=== PATIENT | female | born 1955 | race African-American/Black ===

== ENCOUNTER 2019-03-02 13:45 | Emergency (ER) | payer OTHER, MEDICAID ==
[~2019-03-02] VITALS: Ht 170.2 cm; Wt 79.8 kg
[2019-03-02 13:59] VITALS: BP 118/71
[2019-03-02] MEDS ORDERED: TRAZ-343 PO (14:08)
[2019-03-02] MEDS ORDERED: AMLO5TAB PO (14:08)
[2019-03-02] MEDS ORDERED: PALI6TER PO (14:08)
[2019-03-02] MEDS ORDERED: PANT40EC PO (14:08)
[2019-03-02] MEDS ORDERED: BENZ-248 PO (14:08)
[2019-03-02] MEDS ORDERED: GABA300C PO (14:08)
[2019-03-02] MEDS ORDERED: DIT5 PO (14:08)
[2019-03-02] MEDS ORDERED: IBUPROFEN 600 MG TAB PO ONE (14:45)
[2019-03-02] MEDS ORDERED: HYDROcodone/APAP 5/325 MG 1 TAB TAB PO ONE (15:10)
[2019-03-02 16:57] VITALS: BP 127/76
== END 2019-03-02 16:57 | disposition home or self-care (01) ==
LOC: MED 13:45
DX: G89.29 Other chronic pain (principal); M43.16 Spondylolisthesis, lumbar region; M25.562 Pain in left knee; Z90.49 Acquired absence of other specified parts of digestive tract; Z85.3 Personal history of malignant neoplasm of breast; Z79.899 Other long term (current) drug therapy
CPT/HCPCS: 72100; 73562; 81002; 99283

== ENCOUNTER 2020-10-25 20:42 | Emergency (ER) | payer MEDICARE, MEDICAID ==
[~2020-10-25] VITALS: Ht 167.6 cm; Wt 83.9 kg
[2020-10-25 20:42] VITALS: BP 114/58
[~2020-10-25 20:42] MED LIST: AMLO5TAB PO; BENZ-203 PO; DIT5 PO; GABA300C PO; PALI6TER PO; PANT40EC PO; TRAZ-343 PO
--- NOTE | 2020-10-25 20:49 | NUR ---
PT LILLIAN BLS. TAKEN TO BED 8
--- NOTE | 2020-10-25 20:50 | NUR ---
64 Y/O FEMALE BIBA FROM [facility] C/O LEFT BACK PAIN, LEFT ABDOMINAL AND UPPER LEFT LEG PAIN OF 10/10 S/P FALL.PER EMS, PT WAS FOUND LYING ON THE FLOOR, (UNWITNESSED FALL) AND LANDED ON HER LEFT ABDOMINAL AREA. DENIES N/V/D; SKIN IS PINK/WARM/DRY; AAOX4 WITH UNSTEADY GAIT (NEEDS ASSISTANCE WHEN WALKING); LUNGS CLEAR BL; HR EVEN AND REGULAR; PT DENIES ANY FEVER, CP, SOB, OR COUGH AT THIS TIME; VSS; PATIENT POSITIONED FOR COMFORT; HOB ELEVATED; BEDRAILS UP X2; BED DOWN. ER MD MADE AWARE OF PT STATUS. PMH: SCHIZO, HTN, ASTHMA, BIPOLAR, GERD, DVT, ABDOMINAL HERNIA
--- NOTE | 2020-10-25 20:58 | NUR ---
Dr. Krueger examining patient.
--- NOTE | 2020-10-25 21:20 | NUR ---
PT TAKEN TO CT
--- NOTE | 2020-10-25 21:39 | NUR ---
PATIENT RETURNED FROM CT VIA [facility].
[2020-10-25] MEDS ORDERED: HYDROcodone/APAP 5/325 MG 1 TAB TAB PO ONE (22:20)
[2020-10-25] MEDS ORDERED: MIRABULK PO (22:24)
--- NOTE | 2020-10-25 22:49 | NUR ---
CALLED [facility], SPOKE TO NICOLAS (STAFF) REGARDING TRANSPORT FOR PATIENT
[2020-10-25 23:25] VITALS: BP 114/58
--- NOTE | 2020-10-25 23:26 | NUR ---
Patient discharged with v/s stable. Written and verbal after care instructions given and explained. Patient verbalized understanding. PICKED UP BY [facility] by caregiver. All questions addressed prior to discharge. Advised to follow up with PMD.
== END 2020-10-25 23:26 | disposition home or self-care (01) ==
LOC: MED 20:42
DX: M54.5 Low back pain (principal); R51.9 Headache, unspecified; K59.00 Constipation, unspecified; J45.909 Unspecified asthma, uncomplicated; E11.9 Type 2 diabetes mellitus without complications; I10 Essential (primary) hypertension; F31.9 Bipolar disorder, unspecified; F20.9 Schizophrenia, unspecified; W19.XXXA Unspecified fall, initial encounter; Y93.89 Activity, other specified; Y92.89 Other specified places as the place of occurrence of the external cause; Y99.8 Other external cause status
CPT/HCPCS: 70450; 99285

== ENCOUNTER 2021-01-11 18:00 | Emergency (ER) | payer MEDICARE, MEDICAID ==
[~2021-01-11] VITALS: Ht 160 cm; Wt 72.6 kg
[~2021-01-11 18:00] MED LIST changes: +MIRABULK PO
[2021-01-11 18:03] VITALS: BP 100/70
--- NOTE | 2021-01-11 18:22 | NUR ---
65/F quyen from [facility] with c/o left big toe pain. Patient states a chair fell on her left foot today. Reports 9/10 sharp constant pain that worsens when she attempts to walk or put on shoes. Denies taking anything for pain prior to arrival, no bruising or swelling noted to site, patient able to move all toes appropriately, pulses and sensation equal bilaterally.
--- NOTE | 2021-01-11 19:12 | NUR ---
Pt report given to Stella. Transfer of care at this time.
--- NOTE | 2021-01-11 19:12 | NUR ---
Received report from NATI Cruz for continuity of care
--- NOTE | 2021-01-11 19:13 | NUR ---
ERMD AT BEDSIDE FOR MEDICAL EVALUATION.
[2021-01-11] MEDS ORDERED: IBUPROFEN 600 MG TAB PO ONE (19:15)
[2021-01-11] MEDS ORDERED: ACETAMINOPHEN 325 MG TAB PO ONE (19:15)
--- NOTE | 2021-01-11 19:19 | NUR ---
radiology at bedside.
[2021-01-11] MEDS ORDERED: ACET-2619 PO (19:48)
--- NOTE | 2021-01-11 20:22 | NUR ---
CALLED [facility] FOR TRANSPORTATION, MACHINE OPERATOR HELPER ETA 45MIN-1HR.
[2021-01-11 20:34] VITALS: BP 113/75
== END 2021-01-11 20:34 | disposition home or self-care (01) ==
LOC: MED 18:00
DX: S90.122A Contusion of left lesser toe(s) without damage to nail, initial encounter (principal); J45.909 Unspecified asthma, uncomplicated; I10 Essential (primary) hypertension; F20.9 Schizophrenia, unspecified; W07.XXXA Fall from chair, initial encounter; Y93.89 Activity, other specified; Y92.89 Other specified places as the place of occurrence of the external cause; Y99.8 Other external cause status
CPT/HCPCS: 73620; 99283

== ENCOUNTER 2021-01-26 18:42 | Emergency (ER) | payer MEDICARE, MEDICAID ==
[~2021-01-26] VITALS: Ht 170.2 cm; Wt 68.0 kg
[~2021-01-26 18:42] MED LIST changes: +ACET-2619 PO
[2021-01-26 18:49] VITALS: BP 120/88
--- NOTE | 2021-01-26 18:49 | NUR ---
PT BIBA TO BED 03
--- NOTE | 2021-01-26 19:00 | NUR ---
LILLIAN from [facility] with c/c ALOC. Per EMS, patient normally A&Ox4 GCS 14, but was found slumped over and drooling on self. Upon arrival, EMS states patient acting appropriately A&Ox4, GCS 4-4-6. BS by EMS 98. VSS; RR even/unlabored. Patient presents A&Ox4 to person/year/place/situation. Pt reports not being able to sleep for 3 days. Pt placed into a gown. PMH: Schizo, GED, HTN Meds: trazodone, benztropine, amlodipine, gabapentin, pantoprazole, oxybutynin, chantix, [place] NKA Sx: Denies
[2021-01-26] MEDS ORDERED: ACETAMINOPHEN EXTRA STRENGTH 500 MG TAB PO ONE (19:05)
--- NOTE | 2021-01-26 19:32 | NUR ---
LAB AT BEDSIDE
[2021-01-26 19:42] LABS: BASOPHILS % (AUTO) 0.5 % (0.0-2.0); EOSINOPHILS # (AUTO) 0.1 K/uL (0-0.4); EOSINOPHILS % (AUTO) 2.8 % (0.0-4.0); HEMATOCRIT 39.7 % (36-48); HEMOGLOBIN 13.6 g/dL (12.0-16.0); LYMPHOCYTES # (AUTO) 1.7 K/uL (2.5-16.5); LYMPHOCYTES % (AUTO) 40.8 % (20.5-51.1); MEAN CORPUSCULAR HEMOGLOBIN 34 pg (27-31); MEAN CORPUSCULAR HGB CONC 34 g/dL (33-37); MEAN CORPUSCULAR VOLUME 98.4 fL (80-94); MONOCYTES # (AUTO) 0.4 K/uL (0.8-1.0); MONOCYTES % (AUTO) 10.6 % (1.7-9.3); NEUTROPHILS # (AUTO) 1.9 K/uL (1.8-7.7); NEUTROPHILS % (AUTO) 45.3 % (42.2-75.2); PLATELET COUNT (AUTO) 253 K/uL (140-450); RED BLOOD CELL COUNT(AUTO) 4.04 MIL/uL (4.20-5.40); RED CELL DISTRIBUTION WIDTH 13.5 % (11.6-13.7); WHITE BLOOD COUNT (AUTO) 4.2 K/uL (4.8-10.8)
--- NOTE | 2021-01-26 20:06 | NUR ---
# 16 FR Urinary catheter inserted utilizing sterile technique. Immediate return of 30 ml SUMMER urine noted. Urine sample collected and sent to lab. Pt tolerated procedure WELL.
--- NOTE | 2021-01-26 20:10 | NUR ---
PT TAKEN TO CT SCAN VIA [facility]
[2021-01-26 20:12] LABS: ALBUMIN 3.6 g/dL (3.4-5.0); ANION GAP 13.7 (8-16); ASPARTATE AMINOTRANSFERASE 99 U/L (15-37); CARBON DIOXIDE 25.6 mmol/L (21-32); CHLORIDE 108 mmol/L (98-107); CREATININE 1.1 mg/dL (0.6-1.3); GFR ARICAN-AMERICAN 64 mL/min (>90); GLUCOSE 91 mg/dL (74-106); POTASSIUM 3.3 mmol/L (3.5-5.1); SALICYLATE < 2.8 mg/dL (2.8-20.0); SODIUM SERUM 144 mmol/L (136-145); TOTAL BILIRUBIN 0.7 mg/dL (0.0-1.0); UREA NITROGEN, BLOOD 20 mg/dL (7-18)
[2021-01-26 20:13] LABS: ACETAMINOPHEN < 0.5 ug/ml (10-30)
--- NOTE | 2021-01-26 20:15 | NUR ---
PT RETURNED FROM CT
[2021-01-26 20:17] LABS: APPEARANCE,URINE HAZY (CLEAR); BILIRUBIN,URINE 1+ (NEGATIVE); BLOOD, URINE NEGATIVE (NEGATIVE); COLOR,URINE YELLOW (YELLOW); LEUKOCYTE ESTERASE ,URINE NEGATIVE (NEGATIVE); NITRITE, URINE NEGATIVE (NEGATIVE); PH,URINE 6.5 (5.0-9.0); UGLUCOSE NEGATIVE (NEGATIVE)
[2021-01-26 20:31] LABS: BARBITURATE, URINE NEGATIVE ng/ml (NEG <=200); BENZODIAZEPINE, URINE NEGATIVE ng/mL (NEG <=200); CANNABINOID, URINE NEGATIVE ng/mL (NEG <=50); COCAINE, URINE NEGATIVE ng/mL (NEG <=300); OPIATE, URINE NEGATIVE ng/mL (NEG <=2000); PHENCYCLIDINE SCREEN,URINE NEGATIVE ng/mL (NEG <=25)
[2021-01-26] MEDS ORDERED: POTASSIUM CHLORIDE 10 MEQ TABER PO ONE (20:55)
--- NOTE | 2021-01-26 22:00 | NUR ---
CALLED FACILITY PER DIRECTOR APPOINTMENT PT CAN TAKE A CAB BACK, WHEN READY TO BE DISCHARGED. Addendum: 01/26/21 at 2202 by [email or web address] [phone]
--- NOTE | 2021-01-26 22:48 | NUR ---
RECEIVED CALL FROM FACILITY UPDATED ON PT STATUS.
--- NOTE | 2021-01-26 23:20 | NUR ---
RECEIVED CALL FROM FACILITY SPOKE WITH MAX ADMINSTRATOR, UPDATED ON PT STATUS. REQUESTING LABS AND CT SCAN RESULTS TO BE PRINTED DISCHARGE PAPERS
--- NOTE | 2021-01-26 23:30 | NUR ---
Pt report given to COLLINS DAMIAN. Transfer of care at this time.
--- NOTE | 2021-01-26 23:31 | NUR ---
ECEIVED REPORT FROM NATI KNOWLES. ASSUMED CARE AT THIS TIME. PT SEEN WITH EYES CLOSED. VISIBLE CHEST RISE AND FALL NOTED. SAFETY MEASURES IN PLACE. ALL NEEDS MET AT THIS TIME. WILL CONTINUE TO MONITOR.
--- NOTE | 2021-01-27 | NUR ---
PT AWAKE AT THIS TIME. PT INFORMED OF DISCHARGE AND IS AGREEABLE.
--- NOTE | 2021-01-27 00:05 | NUR ---
PT C/O 5/10 LOWER ABDOMEN PAIN. ERMD MADE AWARE.
--- NOTE | 2021-01-27 00:19 | NUR ---
PT AMBULATORY TO RESTROOM UNASSISTED. STEADY GAIT OBSERVED.
--- NOTE | 2021-01-27 00:21 | NUR ---
RECEIVED VERBAL ORDER FOR TORADOL 15MG IVP FROM DR. FLOR. ORDER CARRIED OUT.
[2021-01-27] MEDS ORDERED: KETOROLAC 30 MG/ML VIAL IVP ONE (00:25)
--- NOTE | 2021-01-27 00:25 | NUR ---
PT REQUESTING TO SPEAK WITH ER PHYSICIAN. DR. FLOR MADE AWARE.
--- NOTE | 2021-01-27 00:50 | NUR ---
CALLED MAX AT [facility] TO INFORM HER THAT PT WILL BE RETURNING.
--- NOTE | 2021-01-27 00:51 | NUR ---
IV removed, catheter intact and site benign. Applied folded 4x4 gauze and tape to stop bleeding.
[2021-01-27 00:53] VITALS: BP 132/85
--- NOTE | 2021-01-27 00:53 | NUR ---
Patient discharged with v/s stable. Written and verbal after care instructions given and explained. Patient verbalized understanding. Ambulatory with steady gait. All questions addressed prior to discharge. Advised to follow up with PMD.
== END 2021-01-27 00:53 | disposition home or self-care (01) ==
LOC: MED 18:42
DX: E87.6 Hypokalemia (principal); M79.605 Pain in left leg; J45.909 Unspecified asthma, uncomplicated; E11.9 Type 2 diabetes mellitus without complications; I10 Essential (primary) hypertension
CPT/HCPCS: 36415; 70450; 80053; 80305; 81003; 84484; 85025; 93005; 96374; 99285; G0480; G0482; J1885

== ENCOUNTER 2021-05-12 18:46 | Emergency (ER) | payer MEDICARE, MEDICAID ==
[~2021-05-12] VITALS: Ht 170.2 cm; Wt 63.5 kg
[~2021-05-12 18:46] MED LIST changes: -BENZ-203 PO; +BENZ-315 PO
[2021-05-12 19:12] VITALS: BP 139/80
--- NOTE | 2021-05-12 19:18 | NUR ---
PATIENT WAITING ON [facility] WITH CARE TEAM
--- NOTE | 2021-05-12 19:28 | NUR ---
PT LILLIAN AL. TAKEN TO BED 12
--- NOTE | 2021-05-12 19:35 | NUR ---
PT AMBULATED TO RESTROOM BY EMT
--- NOTE | 2021-05-12 19:44 | NUR ---
Cheryl staley in ED - 05/12/21 at 1945 by GANESH PT AMBULATED TO RESTROOM WITH EMT
--- NOTE | 2021-05-12 19:57 | NUR ---
Dr. Avila examining patient.
--- NOTE | 2021-05-12 20:05 | NUR ---
Note undone in EDM - 05/12/21 at 2136 by GANESH PT BIB AMBULANCE FROM [facility]. PT WAS REACHING UP AT [employer] AT DINNER TIME AND FELL. PT CLAIMED SHE FELL ON THE BACK OF HER HEAD AND HER LOWER BACK. PT STATED SHE FELT DIZZY BUT DID NOT LOSE CONSCIOUSNESS. PT IS A POOR HISTORIAN. STATES SHE DIDNT WANT TO COME TO ER. PT DENIES CHEST PAIN/ SOB/ COUGHING/ FEVER/ HEADACHE. PT LEFT [facility]
[2021-05-12] MEDS ORDERED: ACETAMINOPHEN 650 MG/20.3 ML UDC PO ONE (20:15)
--- NOTE | 2021-05-12 20:43 | NUR ---
PT TAKEN TO XRAY. NEW BRIEF CHANGE PROVIDED BY NAYANA
--- NOTE | 2021-05-12 20:55 | NUR ---
PT BIB AMBULANCE FROM [facility]. PT WAS REACHING UP AT [employer] AT DINNER TIME AND FELL 2 HOURS AGO.PT HAS A HX OF HTN, BIPOLAR,CHRONIC KNEE PAIN PT CLAIMED SHE FELL ON THE BACK OF HER HEAD AND HER LOWER BACK. PT STATED SHE FELT DIZZY BUT DID NOT LOSE CONSCIOUSNESS. PT IS A POOR HISTORIAN. PT IS AX0 X2. STATES SHE DIDNT WANT TO COME TO ER. PT DENIES CHEST PAIN/ SOB/ COUGHING/ FEVER/ HEADACHE.
--- NOTE | 2021-05-12 20:57 | NUR ---
PT RETURN FROM RADIOLOGY
[2021-05-12 22:20] LABS: BILIRUBIN,URINE NEGATIVE (NEGATIVE); BLOOD, URINE TRACE-I (NEGATIVE); COLOR,URINE YELLOW (YELLOW); LEUKOCYTE ESTERASE ,URINE NEGATIVE (NEGATIVE); NITRITE, URINE POSITIVE (NEGATIVE); UGLUCOSE NEGATIVE (NEGATIVE)
[2021-05-12 22:22] LABS: APPEARANCE,URINE HAZY (CLEAR)
[2021-05-12] MEDS ORDERED: CEFP200T20 PO (22:58)
[2021-05-12] MEDS ORDERED: cefTRIAXone 1,000 MG in LIDOCAINE MPF 1% 2.1 ML IM ONE (23:00)
[2021-05-12] MEDS ORDERED: cefTRIAXone 1,000 MG in LIDOCAINE MPF 1% 2.1 ML IM SCH (23:20)
[2021-05-12] MEDS ORDERED: cefTRIAXone 1,000 MG VIAL ONE (23:20)
[2021-05-12] MEDS ORDERED: LIDOCAINE MPF 1% 5 ML ONE (23:20)
[2021-05-12 23:31] LABS: RBC,URINE 0-5 /HPF (0-5); WBC,URINE 0-5 /HPF (0-5)
--- NOTE | 2021-05-13 00:40 | NUR ---
Patient discharged with v/s stable. Written and verbal after care instructions given and explained. Patient alert, oriented and verbalized understanding of instructions. Ambulatory with steady gait. All questions addressed prior to discharge. ID band removed. Patient advised to follow up with PMD. Rx of CEFPODOXIME given.Opportunity to ask questions provided and answered.
[2021-05-13 01:00] VITALS: BP 148/86
== END 2021-05-13 00:40 | disposition home or self-care (01) ==
LOC: MED 18:46
DX: N39.0 Urinary tract infection, site not specified (principal); M54.50 Low back pain, unspecified; J45.909 Unspecified asthma, uncomplicated; E11.9 Type 2 diabetes mellitus without complications; I10 Essential (primary) hypertension; F31.9 Bipolar disorder, unspecified; K21.9 Gastro-esophageal reflux disease without esophagitis; G47.00 Insomnia, unspecified; G31.89 Other specified degenerative diseases of nervous system; Z79.899 Other long term (current) drug therapy; Z79.2 Long term (current) use of antibiotics; W18.39XA Other fall on same level, initial encounter; Y92.89 Other specified places as the place of occurrence of the external cause; Y93.89 Activity, other specified; Y99.8 Other external cause status
CPT/HCPCS: 70450; 72110; 81001; 87086; 96372; 99285; J0696; J2001

== ENCOUNTER 2021-08-17 11:45 | Emergency (ER) | payer MEDICARE, MEDICAID ==
[~2021-08-17] VITALS: Ht 170.2 cm; Wt 63.5 kg
[~2021-08-17 11:45] MED LIST changes: +CEFP200T20 PO
--- NOTE | 2021-08-17 11:48 | NUR ---
BIBA BLS TO ER BED 9
[2021-08-17 11:50] VITALS: BP 146/83
--- NOTE | 2021-08-17 11:56 | NUR ---
DR. CHILDERS BEDSIDE EVALUATING PT
[2021-08-17] MEDS ORDERED: GABAPENTIN 300 MG CAP PO ONE (12:05)
[2021-08-17] MEDS ORDERED: ACETAMINOPHEN 325 MG TAB PO ONE (12:05)
--- NOTE | 2021-08-17 12:29 | NUR ---
PT TAKEN TO XRAY VIA [facility]
--- NOTE | 2021-08-17 12:41 | NUR ---
65 y/o Female BIBA S/P mechanical fall. Denies LOC, Denies trauma to head or painful neck. Patient states she has left shoulder and left knee pain at this time. PmHx: Stroke, HTN, Bipolar, abd hernia, alcohol abuse Allergies: Denies Home meds: see list in chart
[2021-08-17 14:16] VITALS: BP 146/83
--- NOTE | 2021-08-17 14:20 | NUR ---
Patient discharged with v/s stable. Written and verbal after care instructions given and explained. Patient verbalized understanding. Ambulatory with steady gait. All questions addressed prior to discharge. Advised to follow up with PMD. PT PROVIDED WITH FOOD AND HOMELESS PACKET
== END 2021-08-17 14:16 | disposition home or self-care (01) ==
LOC: MED 11:45
DX: S80.212A Abrasion, left knee, initial encounter (principal); S80.211A Abrasion, right knee, initial encounter; M25.512 Pain in left shoulder; M25.551 Pain in right hip; J45.909 Unspecified asthma, uncomplicated; E11.9 Type 2 diabetes mellitus without complications; I10 Essential (primary) hypertension; Z86.73 Personal history of transient ischemic attack (TIA), and cerebral infarction without residual deficits; Z79.899 Other long term (current) drug therapy; W19.XXXA Unspecified fall, initial encounter; Y93.89 Activity, other specified; Y92.89 Other specified places as the place of occurrence of the external cause; Y99.8 Other external cause status
CPT/HCPCS: 70450; 73030; 73502; 73562; 99284